=== PATIENT | female | born 1985 ===

== ENCOUNTER 2019-01-10 05:10 | Inpatient (IN) | payer MEDICAID ==
[2019-01-10] MEDS: Lactated Ringer's 1,000 ML IV SCH ×2 (05:45→15:45)
[2019-01-10 06:08] VITALS: BMI 21.2
[2019-01-10] MEDS ORDERED: Oxytocin 30 UNIT in NS 500 ml 30 UNITS/500 ML BAG IV ONE ×2 (06:47→07:23)
[2019-01-10 07:11] LABS: BASO # 0.1 K/uL (0.0-0.2); BASO % 0.8 % (0.0-2.0); EOS # 0.1 K/uL (0.0-0.7); EOS % 1.1 % (0.0-4.0); HEMOGLOBIN 10.7 g/dL (11.0-16.0); LYMPH % 20.4 % (20.0-40.0); MEAN CELL VOLUME 81.4 fL (81.0-99.0); MEAN CORPUSCULAR HGB CONC 33.2 g/dL (33.0-37.0); MEAN PLATELET VOLUME 10.6 fL (7.2-11.7); MONO # 0.7 K/uL (0.0-0.8); NEUT % 70.7 % (50.0-75.0); NRBC % 0.1 % (0.0-2.0); RBC 3.96 Mil/uL (3.80-5.20); RED CELL DISTRIBUTION WIDTH 15.3 % (11.5-14.5); WHITE BLOOD COUNT 9.9 K/uL (4.8-10.8)
[2019-01-10 07:20] LABS: SQUAMOUS EPITHIAL 1 /hpf (0-5); URINE BACTERIA RARE (<OCC); URINE BILIRUBIN NEGATIVE (NEGATIVE); URINE BLOOD 3+ (NEGATIVE); URINE CLARITY Clear (Clear); URINE COLOR Straw (YELLOW); URINE GLUCOSE (UA) NORMAL (Normal); URINE LEUKOCYTE ESTERASE TRACE Leu/uL (Negative); URINE PROTEIN NEGATIVE (NEGATIVE); URINE UROBILINOGEN NORMAL mg/dL (0.2-1.0)
[2019-01-10 07:26] LABS: ALB/GLOB RATIO 1.3 (1.0-2.1); ALBUMIN 3.2 g/dL (3.5-5.0); ALT/SGPT 14 U/L (9-52); AST/SGOT 28 U/L (14-36); BLOOD UREA NITROGEN 9 mg/dL (7-17); CALCIUM 8.9 mg/dl (8.6-10.4); GFR NON-AFRICAN AMERICAN > 60
[2019-01-10] MEDS ORDERED: Fentanyl/Bupivacaine HCl 250 ML EPI ONE ×2 (08:11→09:43)
--- NOTE | 2019-01-10 09:45 | OBADHP ---
Datetime: 01/10/2019 09:44 FHR - Baseline A Provider: 130 Contraction Comments Provider: q1-4 NICHD Variability Prov Fetus A: Moderate 6-25bpm NICHD Accel Fetus A IP Provider: 15X15 Dilatation, Provider: 4 Effacement, Provider: 70 Station, Provider: -2 Datetime: 01/10/2019 08:29 Admit Comment, IP Provider: Patient is a 33 year old female AT 38.1 weeks with MIREILLE (01/23/19) and LMP (04/23/18), who presents to [facility] with complaints of contractions and vaginal spotting. Bisi molina reports that she has noted intermittent contractions for approximately week. Patient admits to feta l movement but denies LOF, vaginal bleeding or recent sexual activity. care: Dr. 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 1. Stable, Afebirle 2. CEFM and TOCO / Early labor 3. See admission orders, as per Dr. eFlipe 4. LR @ 125CC/HR 5. Initiate pitocin for augmentation of labor 6. Anesthesia consult upon request 7. Anticipate vaginal delivery All plans and management discussed with Dr. Stephen Howard, DO, PGY-2 Pt seen and examined with Dr. Howard and all of her findings and POC were discussed and agreed on. Extremities - PN: Normal Abdomen - PN: Normal Back - PN: Not Done Breast - PN: Not Done Lungs - PN: Normal Heart - PN: Normal General - PN: Normal Presentation-Admit: Vertex Membranes, Provider: Intact Comments, ACOG Physical Exam: GEN: NAD Cardio: RRR, +S1, +S2, no murmurs Pulm: CTA bilaterally, no wheezing, no rales Abdomen: Soft, Non-tender, gravid Extremities: No edema, No cyanosis and no edema SVE: EFM: 130-140S, +accelerations TOCO: CTX 4-5 minutes Gestation - Est Wks by US: 38.1 IP Hx Assessment: The History has been Reviewed and is Current Vital Signs Provider: Reviewed IP Chief Complaint: Uterine contractions FHR Category Provider Fetus A: Category I NICHD Decel Fetus A IP Provider: None EGA AdmitDate IP: 38.1 IP Adm Impression: Term, intrauterine ; Active labor IP Admit Plan: Admit to unit; Initiate labor protocol
--- NOTE | 2019-01-10 09:49 | OBPN ---
Datetime: 01/10/2019 09:44 IP Progress Impression: Normal progression of labor IP Procedures: Artificial ROM; Sterile Vag Exam Contraction Comments Provider: q1-4 FHR - Baseline A Provider: 130 IP Progress Note Comment: pt was seen at bed side ve /-2 arom clear cont pitocib anticipate Vital Signs Provider: Reviewed; Within Normal Limits NICHD Accel Fetus A IP Provider: 15X15 FHR Category Provider Fetus A: Category I NICHD Variability Prov Fetus A: Moderate 6-25bpm Dilatation, Provider: 4 Effacement, Provider: 70 Station, Provider: -2 Datetime: 01/10/2019 08:29 Membranes, Provider: Intact Gestation - Est Wks by US: 38.1 Presentation-Admit: Vertex NICHD Decel Fetus A IP Provider: None
[2019-01-10] MEDS ORDERED: Oxytocin 10 Units/ml Inj ONE (17:42)
--- NOTE | 2019-01-10 17:53 | OBDS ---
MATERNAL INFORMATION Provider Comments: dr arcadio private baby delived in yunier end kervin 9/9 no LABOR SUMMARY EDC: 01/23/2019 00:00 No. Babies in Womb: 1 LABOR INFORMATION Group B Beta Strep: Negative (Annotations: PER DR ARCADIO) MEMBRANES Membranes Rupture Method: Artificial Rupture of Membranes: 01/10/2019 09:40 Amniotic Fluid Color: Clear Amniotic Fluid Amount: Moderate Amniotic Fluid Odor: Normal PRESENTATION/POSITION BABY A Presentation: Cephalic Cephalic Presentation: Vertex Vertex Position: Left Occipital Anterior Breech Presentation: N/A PLACENTA INFORMATION BABY A Placenta Method of Delivery: Spontaneous Placenta Status: Delivered IDENTIFICATION/MEDS BABY A ID Band Number: [id number] Sensor Number: [id number]
[2019-01-10] MEDS: Oxycodone/Acetaminophen 5/325 mg Tab PO PRN (22:14)
--- NOTE | 2019-01-11 01:24 | CP.PCM.PN ---
Subjective - Date & Time of Evaluation Date of Evaluation: 01/10/19 Time of Evaluation: 18:00 - Subjective Subjective: 33 yof s/p epidural analgesia for labor, . Epidural placement was uneventful, easy, at L4-L5 level, on a first try, no paresthesia, no heme on insertion or removal, catheter threaded easily. Epidural was running continuously with some boluses as needed, 0.125%.bupi with fentanyl 2 mcg. After delivery at around 6 pm epidural was d/c ed. Patient was able to move left leg but right one was numb and weak. Patient was followed up with multiple neuro checks. The strength and sensation in the right leg was coming at a slower rate then usual. At 11 pm patient was able to move foot, push down with foot, sensation was intact up until knee, above knee numb, patient also started moving the leg in the knee, bending in the knee. Patient got up to urinate with the assistance but made a paddle of urine on the floor, unsure if could not make it because of the weakness or could not control it. Dr Ramirez the neurologist hotel concierge was called and explained the clinical scenario, he recommended CT lumbar without contrast to rule out epidural hematoma. Patient was taken to CT and reading from radiologist was faxed that shows no signs of h ematoma, just paralumbar air and some air in epidural space consistent with epidural placement. Patient was advised to not get out of bed due to right leg weakness and to use bed almanza. Patient feels the urge to urinate, there is no urine leakage, patient is able to hold the urine till bed almanza arrives. At 1 am patient was re-examined again, at this time able to feel sensation to touch up to 2 fingerbreaths above the knee, able to bend leg in the knee, also able to lift the knee off of the bed 1 fingerbreath. Will continue to watch the patient and do serial neuro checks. 4/4 = 6 am pt checked, muscle strength improved, can lift the behind to sit on a bed almanza, can lift right leg up, can bend in the knee,sensory grossly intact Objective - Vital Signs/Intake and Output Vital Signs (last 24 hours): Temp Pulse Resp BP Pulse Ox 98.4 F 81 20 103/65 97 01/11/19 01:00 01/11/19 01:00 01/11/19 01:00 01/11/19 01:00 01/11/19 01:00 - Medications Medications: Current Medications Docusate Sodium (Colace) 100 mg PO BID [facility] Lactated Ringer's (Lactated Ringer's) 1,000 mls @ 125 mls/hr IV .Q8H [facility] Last Admin: 01/10/19 15:45 Dose: 125 mls/hr Oxytocin (Pitocin) 30 units in 500 mls @ 2 mls/hr IV .Q24H ONE; Protocol Stop: 01/11/19 06:46 Last Admin: 01/10/19 07:30 Dose: 2 mls/hr Ibuprofen (Motrin Tab) 600 mg PO Q6 PRN PRN Reason: Pain, Mild (1-3) Oxycodone/Acetaminophen (Percocet 5/325 Mg Tab) 1 tab PO Q4H PRN PRN Reason: Pain, moderate (4-7) Stop: 01/13/19 17:49 Last Admin: 01/10/19 22:14 Dose: 1 tab Sennosides (Senokot Tab) 17.2 mg PO DAILY [facility] - Labs Labs: 01/10/19 07:03 01/10/19 07:03
[2019-01-11] MEDS: Lactated Ringer's 1,000 ML IV SCH (03:17)
[2019-01-11] MEDS: Benzocaine/Menthol 20%-0.5% Topical Spray (60 ml) TOP PRN ×2 (06:04→21:13)
[2019-01-11] MEDS: Oxycodone/Acetaminophen 5/325 mg Tab PO PRN ×3 (06:30→23:09)
[2019-01-11 08:08] LABS: BASO % 0.2 % (0.0-2.0); EOS # 0.1 K/uL (0.0-0.7); EOS % 0.6 % (0.0-4.0); HEMOGLOBIN 9.2 g/dL (11.0-16.0); LYMPH # 1.9 K/uL (1.0-4.3); LYMPH % 11.7 % (20.0-40.0); MEAN CELL VOLUME 81.2 fL (81.0-99.0); MEAN CORPUSCULAR HEMOGLOBIN 26.5 pg (27.0-31.0); MEAN CORPUSCULAR HGB CONC 32.7 g/dL (33.0-37.0); MEAN PLATELET VOLUME 9.2 fL (7.2-11.7); MONO # 1.2 K/uL (0.0-0.8); MONO % 7.3 % (0.0-10.0); NEUT # 13.3 K/uL (1.8-7.0); NEUT % 80.2 % (50.0-75.0); RBC 3.48 Mil/uL (3.80-5.20); RED CELL DISTRIBUTION WIDTH 15.6 % (11.5-14.5)
[2019-01-11 08:14] LABS: WHITE BLOOD COUNT 16.6 K/uL (4.8-10.8)
--- NOTE | 2019-01-11 13:18 | CT ---
Date of service: 01/10/2019 PROCEDURE: CT Lumbar Spine without contrast HISTORY: Right leg weakness post epidural catheter COMPARISON: None available. TECHNIQUE: Axial computed tomography images were obtained of the lumbar spine without the use of intravenous contrast. Coronal and sagittal reformatted images were created and reviewed. Radiation dose: Total exam DLP = 406.06 mGy-cm. This CT exam was performed using one or more of the following dose reduction techniques: Automated exposure control, adjustment of the mA and/or kV according to patient size, and/or use of iterative reconstruction technique. FINDINGS: VERTEBRAE: No acute compression fractures no retropulsed fragments. Vertebral bodies exhibit normal stature. Vertebral bodies and facets normally aligned DISCS/SPINAL CANAL/NEURAL FORAMINA: Disc space heights maintained. Overall central bony canal and exit foramina adequate. L1-2: Unremarkable. L2-3: Unremarkable. L3-4: Unremarkable. L4-5: Unremarkable. L5-S1: Minimal central and bilateral disc bulge is present with no significant compressive effects on the descending S1 nerve roots or ventral surface of the thecal sac. PARASPINAL SOFT TISSUES: There is moderate amount of subcutaneous air seen extending from approximately the superior aspect of the L1 segment through the L4 level the epicenter however is located at approximately the L2 level. Small bubbles of air are seen within the epidural space from L1 through the L2-L3 level with air tracking along-within the right paraspinal soft tissues and musculature (right psoas muscle). Small bubble of air is seen adjacent to the the left psoas muscle.. There is also subcutaneous air within the posterior paraspinal soft tissues likely related to recent epidural injection. No evidence to suggest epidural or paraspinal hematoma or other fluid collection at this time. OTHER FINDINGS: None. IMPRESSION: No acute fractures. Subcutaneous air is present within the posterior paraspinal as well as the paraspinal musculature-psoas muscle right greater than left. Small amount of epidural air is also present.. The the bulk of the subcutaneous emphysema is located at the L2-L3 level and tracks superiorly and inferiorly as detailed above. No evidence of epidural or paraspinal hematoma or other fluid collection.
--- NOTE | 2019-01-12 12:12 | OBPPN ---
Datetime: 01/12/2019 10:02 PP Pain Prov: Within normal limits PP Nausea Prov: Denies PP Flatus Prov: Yes PP BM Prov: Yes PP Heart Prov: Normal PP Lungs Prov: Normal PP Abdomen/Uterus Prov: Normal PP Extremities Prov: Normal PP C/S Incision Prov: Not Applicable PP Comments Phys Exam Prov: right and left lower extremities 5/5 in muscle strength, sensation intac t uterus at level of umbilicus PP Impression Prov: Normal progression PP Plan Prov: Continue present management; Discharge PP Progress Note Prov: Patient seen and examined at bedside this morning. Patient endorses passing g as and urinating without difficulties. Not complaining of pain. Been breasfeeding. Plans to breastfee d for now then add formula feed later. Denies chest pain, SOB, nausea, vomiting, fevers, chills. Per anesthesia note, had right leg weakness after anesthesia. However, it has resolved. Patient wi thout complaints on mobility/strength. Able to ambulate normally. labs and PE - see above A/P: 33 year old s/p on 01/10. Now PPD2. -continue with bowel regimen -continue to encourage ambulation -continue with breasfeeding -patient agrees to discuss contraception with Dr. Felipe during f/u -discharge later today, PPD2 Suzie Fortune PGY1 IP PP Procedures: None Vital Signs Provider PP: Reviewed; Within Normal Limits
--- NOTE | 2019-01-12 12:20 | OBDCSUM ---
Datetime: 01/12/2019 12:19 Discharged to, Provider: Home Follow up at, Provider: Dr. Felipe Disch Instr Activity: Normal activity; May be up to bathroom; May be up for meals; May Shower Disch Instr Diet: Regular Discharge Instructions, Provider: Routine instructions given Discharge Diagnosis, Provider: Term Delivered Follow up in weeks, Provider: 6 weeks Disch Referrals: None Contraception discussed, Prov: Yes Disch Activity Restrictions: No sexual activity; Nothing in vagina - [place], tampons, douche Discharge Comment, Provider: Please discharge patient home Please follow up with Dr. Felipe in 6 weeks for care Please nothing per vaginal and no sexual intercourse for 6 weeks Please resume to all regular activities as tolerated Please continue with hydration, breast feeding and ambulation Please use motrin 600mg PO every 4 hours as needed for pain control Please continue with vitamins gummies daily Please continue with ferrous sulfate 325mg PO daily Please continue with colace 100mg PO twice daily for constipation Please return to the hospital or call your Safety Deposit Clerk if symptoms of fever, chills, nausea, vomiting, abdominal pain, excessive vaginal bleeding, abnormal vaginal discharge Please take care Discharge Diagnosis Prov Other: 38.1 weeks, s/p Contraception after Delivery: Undecided
[2019-01-12 22:25] VITALS: BP 117/72; PULSE 77; RESP 18; TEMP 97; O2SAT 96
== END 2019-01-12 18:00 | disposition home or self-care (01) | DRG 560 ==
LOC: C.EROB 05:10 → C.4D 05:30 → C.4M 20:30
PROVIDERS: ADMIT Obstetrics & Gynecology; ATTEND Obstetrics & Gynecology
PROC: 10E0XZZ Delivery of Products of Conception, External Approach (ICD-10-PCS; principal; 2019-01-10)
DX: O80 Encounter for full-term uncomplicated delivery (principal); Z37.0 Single live birth